=== PATIENT | female | born 1935 | race Caucasian/White ===

== ENCOUNTER 2017-02-15 00:37 | Inpatient (IN) | payer OTHER, MEDICARE ==
[~2017-02-15] VITALS: Ht 157.5 cm; Wt 47.0 kg
[~2017-02-15 00:37] MED LIST: APAP/HYDROCODON1 T13 PO; AZELASTINE HYDRO6 ML OU; CALCIUM CARBON648 MG PO; CLOTRIMAZOLE1% TOP; COL100 PO; LAC PO; LEVAQUIN750 MG PO; LOVASTATIN20 MG; LOVASTATIN20 MG PO; NEPHRO-VITE VITA1 EA PO; OXYBUTYNIN5 M1 PO; PRILOSEC10 MG PO; VITAMIN D32000 I2 PO; ZES10 PO; [UNRECOGNIZED DRUG - OTHER] PO
[2017-02-15 02:13] LABS: POTASSIUM SERUM 4.9 mmol/L (3.5-5.1)
[2017-02-15 02:30] LABS: PLATELET COUNT 245 x10^3mcL (130-400); RED CELL DISTRIBUTION WIDTH 12.6 % (11.5-14.5)
[2017-02-15 02:34] LABS: BASOPHIL % 2.2 % (0-2)
[2017-02-15 02:44] LABS: ALBUMIN 3.9 g/dL (3.4-5.0); ALKALINE PHOSPHATASE 82 U/L (46-116); ALT/SGPT 25 U/L (14-59); AST/SGOT 28 U/L (15-37); BILIRUBIN TOTAL 0.35 mg/dL (0.20-1.00); CALCIUM 8.9 mg/dL (8.5-10.1); CARBON DIOXIDE 23.4 mmol/L (21-32); CHLORIDE SERUM 104 mmol/L (98-107); CREATININE SERUM 2.3 mg/dL (0.6-1.0); GLUCOSE SERUM 99 mg/dL (74-106); SODIUM SERUM 136 mmol/L (136-145); TOTAL PROTEIN, SERUM 7.6 g/dL (6.4-8.2)
[2017-02-15 02:45] LABS: CHOLESTEROL 110 mg/dL (<200)
[2017-02-15 04:11] LABS: CHOLESTEROL/HDL RATIO 2.2
[2017-02-15 04:12] LABS: T3 TOTAL 0.82 ng/mL
[2017-02-15 04:13] LABS: FREE T4 1.28 ng/dL (0.76-1.46); FREE THYROXINE INDEX 2.7 ug/dL (1.4-4.5); T4(THYROXINE) 7.4 ug/dL (4.7-13.3)
[2017-02-15 05:13] VITALS: BP 143/69
[2017-02-15 09:28] VITALS: BP 157/86
[2017-02-15 13:20] VITALS: BP 109/64
[2017-02-15 17:10] VITALS: BP 120/75
[2017-02-15 20:30] LABS: microscopic required? NO
[2017-02-15 20:38] LABS: UA SPECIFIC GRAVITY <=1.005 (1.005-1.035); urine erythrocyte NEGATIVE (NEGATIVE)
[2017-02-15 20:40] VITALS: BP 112/61
[2017-02-16 05:43] VITALS: Ht 157.5 cm; Wt 47.0 kg
[2017-02-16 06:02] LABS: BASOPHIL % 0.5 % (0-2); PLATELET COUNT 213 x10^3mcL (130-400); RED CELL DISTRIBUTION WIDTH 13.4 % (11.5-14.5)
[2017-02-16 06:08] VITALS: BP 122/62
[2017-02-16 06:22] LABS: CALCIUM 8.5 mg/dL (8.5-10.1); CARBON DIOXIDE 23.1 mmol/L (21-32); CHLORIDE SERUM 112 mmol/L (98-107); CREATININE SERUM 2.2 mg/dL (0.6-1.0); GLUCOSE SERUM 79 mg/dL (74-106); POTASSIUM SERUM 5.3 mmol/L (3.5-5.1); SODIUM SERUM 142 mmol/L (136-145)
[2017-02-16 06:24] LABS: ALBUMIN 3.1 g/dL (3.4-5.0)
[2017-02-16 10:45] VITALS: BP 111/71
[2017-02-16 17:55] VITALS: BP 104/65
[2017-02-16 21:53] VITALS: BP 124/67
[2017-02-17 06:12] LABS: BASOPHIL % 0.5 % (0-2); PLATELET COUNT 197 x10^3mcL (130-400); RED CELL DISTRIBUTION WIDTH 13.3 % (11.5-14.5)
[2017-02-17 06:28] VITALS: BP 132/75
[2017-02-17 06:56] LABS: CALCIUM 8.8 mg/dL (8.5-10.1); CARBON DIOXIDE 21.6 mmol/L (21-32); CHLORIDE SERUM 108 mmol/L (98-107); CREATININE SERUM 2.3 mg/dL (0.6-1.0); GLUCOSE SERUM 92 mg/dL (74-106); POTASSIUM SERUM 4.8 mmol/L (3.5-5.1); SODIUM SERUM 142 mmol/L (136-145)
[2017-02-17 07:04] LABS: ALBUMIN 3.2 g/dL (3.4-5.0)
[2017-02-17 09:20] VITALS: BP 130/80
[2017-02-17 16:51] VITALS: BP 118/70
[2017-02-17 17:42] VITALS: BP 118/70
== END 2017-02-17 18:50 | disposition home health service (06) | DRG 48 ==
LOC: ED 00:37 → DU 03:05 → MU 02-16 07:05
PROVIDERS: Family Medicine; Specialist; ADMIT Family Medicine
DX: G90.9 Disorder of the autonomic nervous system, unspecified (principal); N17.0 Acute kidney failure with tubular necrosis; E86.0 Dehydration; K21.9 Gastro-esophageal reflux disease without esophagitis; E03.9 Hypothyroidism, unspecified; D64.9 Anemia, unspecified; I16.0 Hypertensive urgency; R32 Unspecified urinary incontinence; R73.03 Prediabetes; E87.8 Other disorders of electrolyte and fluid balance, not elsewhere classified; E87.5 Hyperkalemia; I27.2 Other secondary pulmonary hypertension; K44.9 Diaphragmatic hernia without obstruction or gangrene; M19.90 Unspecified osteoarthritis, unspecified site; I12.9 Hypertensive chronic kidney disease with stage 1 through stage 4 chronic kidney disease, or unspecified chronic kidney disease; N18.9 Chronic kidney disease, unspecified; M81.0 Age-related osteoporosis without current pathological fracture; E44.0 Moderate protein-calorie malnutrition; Z68.1 Body mass index [BMI] 19.9 or less, adult; Z79.4 Long term (current) use of insulin; Z88.0 Allergy status to penicillin; Z85.42 Personal history of malignant neoplasm of other parts of uterus
CPT/HCPCS: 82962; 83880; 84439; 97110-GP; 97116-GP; 97530-GP; G0480; J2405; J7030; J8597; Q0092

== ENCOUNTER 2017-05-26 16:41 | Inpatient (IN) | payer OTHER, MEDICARE ==
[~2017-05-26] VITALS: Ht 157.5 cm; Wt 40.9 kg
[2017-05-26 18:22] LABS: BASOPHIL % 0.3 % (0-2); PLATELET COUNT 261 x10^3mcL (130-400); RED CELL DISTRIBUTION WIDTH 13.4 % (11.5-14.5)
[2017-05-26 18:22] LABS: microscopic required? YES; urine erythrocyte NEGATIVE (NEGATIVE)
[2017-05-26 18:57] LABS: ALKALINE PHOSPHATASE 53 U/L (46-116); ALT/SGPT 21 U/L (14-59); AST/SGOT 27 U/L (15-37); CALCIUM 8.2 mg/dL (8.5-10.1); CARBON DIOXIDE 17.8 mmol/L (21-32); CHLORIDE SERUM 91 mmol/L (98-107); CREATININE SERUM 3.4 mg/dL (0.6-1.0); GLUCOSE SERUM 110 mg/dL (74-106); LIPASE 130 IU/L (73-393); POTASSIUM SERUM 5.1 mmol/L (3.5-5.1); TOTAL PROTEIN, SERUM 6.7 g/dL (6.4-8.2)
[2017-05-26 19:06] LABS: SODIUM SERUM 123 mmol/L (136-145)
[2017-05-26] MEDS ORDERED: [UNRECOGNIZED DRUG - OTHER] IV (19:33)
[2017-05-26] MEDS ORDERED: ZOF4 PO (19:33)
[2017-05-26 20:51] VITALS: BP 127/58
[2017-05-26 21:14] VITALS: BP 127/58
[2017-05-26 21:35] LABS: MAGNESIUM 1.6 mg/dL (1.8-2.4)
[2017-05-26 21:36] LABS: CHOLESTEROL/HDL RATIO 2.1
[2017-05-26 21:43] LABS: T3 TOTAL 0.47 ng/mL
[2017-05-26 22:19] LABS: FREE T4 1.32 ng/dL (0.76-1.46); FREE THYROXINE INDEX 2.6 ug/dL (1.4-4.5); T4(THYROXINE) 6.9 ug/dL (4.7-13.3)
[2017-05-27 05:16] VITALS: BP 117/72
[2017-05-27 06:01] LABS: BASOPHIL % 0.3 % (0-2); PLATELET COUNT 276 x10^3mcL (130-400); RED CELL DISTRIBUTION WIDTH 13.7 % (11.5-14.5)
[2017-05-27 06:22] LABS: CALCIUM 8.4 mg/dL (8.5-10.1); CARBON DIOXIDE 19.9 mmol/L (21-32); CHLORIDE SERUM 99 mmol/L (98-107); CREATININE SERUM 3.2 mg/dL (0.6-1.0); GLUCOSE SERUM 89 mg/dL (74-106); MAGNESIUM 2.6 mg/dL (1.8-2.4); PHOSPHOROUS 4.1 mg/dL (2.5-4.9); POTASSIUM SERUM 4.9 mmol/L (3.5-5.1); SODIUM SERUM 131 mmol/L (136-145)
[2017-05-27 09:50] VITALS: BP 126/66
[2017-05-27 13:38] VITALS: BP 122/64
[2017-05-27 17:05] VITALS: BP 107/68
[2017-05-27 21:54] LABS: CALCIUM 8.3 mg/dL (8.5-10.1); CARBON DIOXIDE 19.7 mmol/L (21-32); CHLORIDE SERUM 101 mmol/L (98-107); CREATININE SERUM 3.3 mg/dL (0.6-1.0); GLUCOSE SERUM 121 mg/dL (74-106); MAGNESIUM 2.4 mg/dL (1.8-2.4); POTASSIUM SERUM 4.9 mmol/L (3.5-5.1); SODIUM SERUM 133 mmol/L (136-145)
[2017-05-28 05:57] LABS: BASOPHIL % 0.2 % (0-2); PLATELET COUNT 298 x10^3mcL (130-400); RED CELL DISTRIBUTION WIDTH 13.8 % (11.5-14.5)
[2017-05-28 06:04] LABS: CALCIUM 8.6 mg/dL (8.5-10.1); CARBON DIOXIDE 19.4 mmol/L (21-32); CHLORIDE SERUM 103 mmol/L (98-107); CREATININE SERUM 3.1 mg/dL (0.6-1.0); GLUCOSE SERUM 80 mg/dL (74-106); POTASSIUM SERUM 4.7 mmol/L (3.5-5.1); SODIUM SERUM 134 mmol/L (136-145)
[2017-05-28 10:22] VITALS: BP 114/68
[2017-05-28 14:07] VITALS: BP 112/64
[2017-05-28 18:46] VITALS: BP 130/64
[2017-05-28 21:49] VITALS: BP 126/82
[2017-05-29 06:10] VITALS: BP 126/70
[2017-05-29 07:18] LABS: CALCIUM 8.7 mg/dL (8.5-10.1); CARBON DIOXIDE 19.3 mmol/L (21-32); CHLORIDE SERUM 102 mmol/L (98-107); CREATININE SERUM 2.8 mg/dL (0.6-1.0); GLUCOSE SERUM 88 mg/dL (74-106); POTASSIUM SERUM 4.6 mmol/L (3.5-5.1); SODIUM SERUM 132 mmol/L (136-145)
[2017-05-29 09:37] LABS: BASOPHIL % 0.3 % (0-2); PLATELET COUNT 292 x10^3mcL (130-400); RED CELL DISTRIBUTION WIDTH 14.1 % (11.5-14.5)
[2017-05-29 09:52] VITALS: BP 125/65
[2017-05-29 12:55] VITALS: BP 131/67
[2017-05-29 16:53] VITALS: BP 121/75
[2017-05-29 22:07] VITALS: BP 129/68
[2017-05-30 06:17] VITALS: BP 124/82
[2017-05-30 06:30] LABS: CALCIUM 8.8 mg/dL (8.5-10.1); CARBON DIOXIDE 23.7 mmol/L (21-32); CHLORIDE SERUM 100 mmol/L (98-107); CREATININE SERUM 2.7 mg/dL (0.6-1.0); GLUCOSE SERUM 92 mg/dL (74-106); POTASSIUM SERUM 5.1 mmol/L (3.5-5.1); SODIUM SERUM 134 mmol/L (136-145)
[2017-05-30 09:55] VITALS: BP 109/61
[2017-05-30 17:45] VITALS: BP 122/71
[2017-05-30 21:29] VITALS: BP 119/78
[2017-05-31 06:17] VITALS: BP 122/66
[2017-05-31 06:43] LABS: CALCIUM 8.8 mg/dL (8.5-10.1); CARBON DIOXIDE 17.9 mmol/L (21-32); CHLORIDE SERUM 99 mmol/L (98-107); CREATININE SERUM 2.3 mg/dL (0.6-1.0); GLUCOSE SERUM 91 mg/dL (74-106); POTASSIUM SERUM 4.8 mmol/L (3.5-5.1); SODIUM SERUM 131 mmol/L (136-145)
[2017-05-31 06:50] LABS: BASOPHIL % 0.6 % (0-2); PLATELET COUNT 293 x10^3mcL (130-400); RED CELL DISTRIBUTION WIDTH 14.4 % (11.5-14.5)
[2017-05-31 09:41] VITALS: BP 122/65
[2017-05-31] MEDS ORDERED: LAC30L PO (16:14)
[2017-05-31 16:15] VITALS: BP 122/65
== END 2017-05-31 17:08 | disposition home or self-care (01) | DRG 463 ==
LOC: ED 16:41 → DU 20:05 → MU 05-31 10:37
PROVIDERS: Emergency Medicine; Family Medicine; Student in an Organized Health Care Education/Training Program; ADMIT Family Medicine
DX: N39.0 Urinary tract infection, site not specified (principal); N17.0 Acute kidney failure with tubular necrosis; E43 Unspecified severe protein-calorie malnutrition; E87.8 Other disorders of electrolyte and fluid balance, not elsewhere classified; E86.0 Dehydration; D63.1 Anemia in chronic kidney disease; G90.8 Other disorders of autonomic nervous system; E87.6 Hypokalemia; E83.42 Hypomagnesemia; E78.5 Hyperlipidemia, unspecified; R73.03 Prediabetes; E03.9 Hypothyroidism, unspecified; R32 Unspecified urinary incontinence; Z68.1 Body mass index [BMI] 19.9 or less, adult; Z85.42 Personal history of malignant neoplasm of other parts of uterus; Z88.0 Allergy status to penicillin; N18.9 Chronic kidney disease, unspecified; E87.1 Hypo-osmolality and hyponatremia; K56.41 Fecal impaction; T50.995A Adverse effect of other drugs, medicaments and biological substances, initial encounter; Y92.89 Other specified places as the place of occurrence of the external cause
CPT/HCPCS: 82962; 83880; 84439; 94150; 97110-GP; 97116-GP; 97530-GP; C9113; J0696; J2405; J3475; J7030; Q0092

== ENCOUNTER 2018-05-19 | Inpatient (IN) | payer OTHER, MEDICARE ==
[~2018-05-19] VITALS: Ht 152.4 cm; Wt 46.3 kg
[~2018-05-19] MED LIST changes: +LAC30L PO; +ZOF4 PO; +[UNRECOGNIZED DRUG - OTHER] IV
[2018-05-19 03:32] LABS: BASOPHIL % 1.2 % (0-2); RED CELL DISTRIBUTION WIDTH 12.8 % (11.5-14.5)
[2018-05-19 03:37] LABS: CALCIUM 9.5 mg/dL (8.5-10.1); CARBON DIOXIDE 16.4 mmol/L (21-32); CHLORIDE SERUM 101 mmol/L (98-107); CREATININE SERUM 2.2 mg/dL (0.6-1.0); GLUCOSE SERUM 101 mg/dL (74-106); POTASSIUM SERUM 4.7 mmol/L (3.5-5.1); SODIUM SERUM 133 mmol/L (136-145)
[2018-05-19 03:42] LABS: ALBUMIN 3.6 g/dL (3.4-5.0); ALKALINE PHOSPHATASE 71 U/L (46-116); ALT/SGPT 21 U/L (14-59); AST/SGOT 29 U/L (15-37); TOTAL PROTEIN, SERUM 7.2 g/dL (6.4-8.2)
[2018-05-19 03:58] LABS: PLATELET COUNT 10 x10^3mcL (130-400)
[2018-05-19] MEDS ORDERED: NATURAL IRON65 MG PO (05:49)
[2018-05-19] MEDS ORDERED: NEPHRO-VITE RX1 TAB PO (05:50)
[2018-05-19] MEDS ORDERED: ALENDRONATE SOD70 M2 PO (05:50)
[2018-05-19] MEDS ORDERED: CALCIUM 600600 M3 PO (05:50)
[2018-05-19] MEDS ORDERED: MASON NATURAL1000 IU PO (05:51)
[2018-05-19] MEDS ORDERED: FA-8800 MCG PO (05:51)
[2018-05-19] MEDS ORDERED: LEVOTHYROXINE0.05 M2 PO (05:52)
[2018-05-19] MEDS ORDERED: LOVASTATIN20 MG PO (05:52)
[2018-05-19 08:04] VITALS: BP 165/93
[2018-05-19 08:36] LABS: MAGNESIUM 1.7 mg/dL (1.8-2.4)
[2018-05-19 08:37] LABS: CHOLESTEROL/HDL RATIO 2.3
[2018-05-19 08:44] LABS: T3 TOTAL 0.7 ng/mL
[2018-05-19 09:20] VITALS: BP 144/91
[2018-05-19 09:57] LABS: FREE T4 1.04 ng/dL (0.76-1.46); FREE THYROXINE INDEX 2.4 ug/dL (1.4-4.5); T4(THYROXINE) 6.5 ug/dL (4.7-13.3)
[2018-05-19 12:00] LABS: BASOPHIL % 0.3 % (0-2); PLATELET COUNT 180 x10^3mcL (130-400); RED CELL DISTRIBUTION WIDTH 13.4 % (11.5-14.5)
[2018-05-19 12:53] VITALS: BP 157/79
[2018-05-19 17:50] VITALS: BP 128/82
[2018-05-19 19:15] VITALS: BP 114/68
[2018-05-19 22:03] LABS: UA SPECIFIC GRAVITY <=1.005 (1.005-1.035); microscopic required? YES; urine erythrocyte NEGATIVE (NEGATIVE)
[2018-05-20] VITALS (7 sets, daily range): BP systolic 113–159; BP diastolic 68–83
[2018-05-20 06:51] LABS: BASOPHIL % 0.4 % (0-2); PLATELET COUNT 179 x10^3mcL (130-400); RED CELL DISTRIBUTION WIDTH 13.3 % (11.5-14.5)
[2018-05-20 07:03] LABS: CALCIUM 8.8 mg/dL (8.5-10.1); CARBON DIOXIDE 21.2 mmol/L (21-32); CHLORIDE SERUM 105 mmol/L (98-107); CREATININE SERUM 2.2 mg/dL (0.6-1.0); GLUCOSE SERUM 96 mg/dL (74-106); MAGNESIUM 1.8 mg/dL (1.8-2.4); POTASSIUM SERUM 4.8 mmol/L (3.5-5.1); SODIUM SERUM 136 mmol/L (136-145)
[2018-05-20 07:06] LABS: IRON 57 ug/dL (50-170)
[2018-05-20 07:07] LABS: TOTAL IRON BINDING CAPACITY 220 ug/dL (250-450)
[2018-05-20] MEDS ORDERED: LEVAQUIN250 M1 PO (17:41)
== END 2018-05-20 22:59 | disposition home health service (06) | DRG 199 ==
LOC: ED → DU 05:11
PROVIDERS: Emergency Medicine; Family Medicine; Internal Medicine
DX: I16.0 Hypertensive urgency (principal); D69.6 Thrombocytopenia, unspecified; E11.22 Type 2 diabetes mellitus with diabetic chronic kidney disease; N39.0 Urinary tract infection, site not specified; E03.9 Hypothyroidism, unspecified; E78.00 Pure hypercholesterolemia, unspecified; I12.9 Hypertensive chronic kidney disease with stage 1 through stage 4 chronic kidney disease, or unspecified chronic kidney disease; N18.9 Chronic kidney disease, unspecified; D64.9 Anemia, unspecified; E87.1 Hypo-osmolality and hyponatremia; I45.10 Unspecified right bundle-branch block; Z90.710 Acquired absence of both cervix and uterus; Z79.899 Other long term (current) drug therapy; Z88.0 Allergy status to penicillin
CPT/HCPCS: 82962; 83880; 84439; J2405; J7030; Q0092

== ENCOUNTER 2020-01-10 01:51 | Emergency (ER) | payer MEDICARE, OTHER ==
[~2020-01-10] VITALS: Ht 142.2 cm; Wt 44.9 kg
[~2020-01-10 01:51] MED LIST changes: +ALENDRONATE SOD70 M2 PO; +CALCIUM 600600 M3 PO; +FA-8800 MCG PO; +LEVAQUIN250 M1 PO; +LEVOTHYROXINE0.05 M2 PO; +MASON NATURAL1000 IU PO; +NATURAL IRON65 MG PO; +NEPHRO-VITE RX1 TAB PO
[2020-01-10 02:01] VITALS: Ht 142.2 cm; Wt 44.9 kg
[2020-01-10 05:22] VITALS: BP 118/78
== END 2020-01-10 05:23 | disposition home or self-care (01) ==
LOC: ED 01:51
DX: B34.9 Viral infection, unspecified (principal); I10 Essential (primary) hypertension; E11.9 Type 2 diabetes mellitus without complications; E11.22 Type 2 diabetes mellitus with diabetic chronic kidney disease; N18.9 Chronic kidney disease, unspecified; E78.00 Pure hypercholesterolemia, unspecified; E03.9 Hypothyroidism, unspecified; Z88.0 Allergy status to penicillin; Z86.2 Personal history of diseases of the blood and blood-forming organs and certain disorders involving the immune mechanism
CPT/HCPCS: 87804; Q0092